=== PATIENT | male | born 1935 | race Caucasian/White ===

== ENCOUNTER 2021-08-06 08:41 | Inpatient (IN) | payer MEDICARE, BC ==
[~2021-08-06] VITALS: Ht 193 cm; Wt 109.8 kg
[2021-08-06 09:03] VITALS: BP 124/58
[2021-08-06] MEDS ORDERED: GLUMETZA500 PO (09:27)
[2021-08-06] MEDS ORDERED: VITAMIN D310 MC1 PO (09:27)
[2021-08-06] MEDS ORDERED: GLUCOSAMINE HC500 M1 PO (09:27)
[2021-08-06] MEDS ORDERED: LEVO-T100 MCG PO (09:28)
[2021-08-06] MEDS ORDERED: ANDROGEL5 GM TOP (09:28)
[2021-08-06] MEDS ORDERED: HYDROCHLOROTHIA25 M1 PO (09:28)
[2021-08-06] MEDS ORDERED: PREDNISOLONE 5 M5 M1 PO (09:28)
[2021-08-06 09:29] LABS: ABSOLUTE LYMPHOCYTES 0.6 thou/uL (0.8-5.3); ABSOLUTE NEUTROPHILS 1.4 thou/uL (1.6-8.1); BASOPHILS 0.7 %; EOSINOPHILS 1.3 %; HEMATOCRIT 39.3 % (42.0-52.0); LYMPHOCYTES 30.3 %; MCH 31.3 pg (26.0-34.0); MCV 94.9 fL (80.0-100.0); MONOCYTES 0.6 %; MPV 9.7 fl. (7.2-11.1); NUCLEATED RBCS 0 /100WBC; PLATELET COUNT* 144 thou/uL (150-400); POLYS 67.1 %; RBC 4.14 mil/uL (4.50-6.00); RDW-CV 16.2 % (10.5-14.5)
[2021-08-06] MEDS ORDERED: ABILIFY 5 MG TAB5 MG PO (09:29)
[2021-08-06] MEDS ORDERED: BROMOCRIPTINE2.5 M2 PO (09:29)
[2021-08-06] MEDS ORDERED: ELIQUIS2.5 MG PO (09:29)
[2021-08-06 09:36] LABS: INFLUENZA A ANTIGEN Negative (Negative); INFLUENZA B ANTIGEN Negative (Negative)
[2021-08-06 10:24] LABS: URINE BILIRUBIN NEGATIVE (Negative); URINE BLOOD 3+ (Negative); URINE CLARITY CLEAR; URINE COLOR YELLOW; URINE GLUCOSE-RANDOM NEGATIVE (Negative); URINE KETONES NEGATIVE (Negative); URINE PROTEIN NEGATIVE (Negative); URINE SPECIFIC GRAVITY 1.025 (1.005-1.030); URINE UROBILINOGEN 0.2 E.U./dl (0.2-1.0)
[2021-08-06 10:25] LABS: URINE LEUKOCYTES-REFLEX 2+ (Negative); URINE NITRITE-REFLEX POSITIVE (Negative)
--- NOTE | 2021-08-06 10:28 | EKG ---
[place] [address] ELECTROCARDIOGRAM REPORT Name: TAMERA MEDINA Room: [facility]#: [id number] Admission: 08/06/21 Attend Phys: Discharge: Date of : [birth year] Date of Service: 08/06/21854 Report #: [id number] THIS REPORT FOR: //name// [facility] ED Test Date: 2021-08-06 Test Time: 08:55:51 Pat Name: TAMERA MEDINA Department: Room: Gender: [employer] L[employer]ter: : 1935 Requested By: Boni Hale Order Number: [id number] MD: Brandt Hull Measurements Intervals [place] Rate: 186 P: [place]: QRS: 59 QRSD: 128 T: 256 QT: 294 QTc: 517 Interpretive Statements atrial fibrillation nonspecific st segment chagnes artifact noted No previous ECG available for comparison Electronically Signed On 08-06-2021 10:28:15 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
[2021-08-06 10:35] LABS: BACTERIA-REFLEX >30 Many /HPF (None Seen)
[2021-08-06 10:36] LABS: CASTS None Seen /LPF (None Seen); CRYSTALS None Seen /LPF (None Seen); SQUAMOUS 0-3 Few /LPF (0-3); URINE RBC >20 Many /HPF (0-2); URINE WBC-REFLEX 6-15 Few /HPF (0-5)
[2021-08-06 10:37] LABS: MUCUS 0-3 Light strn/LPF (None Seen)
[2021-08-06 16:30] VITALS: BP 78/57
[2021-08-06 16:46] LABS: CALCIUM 8.9 mg/dL (8.5-10.1); CREATININE 1.5 mg/dL (0.6-1.3); POTASSIUM 3.4 mmol/L (3.5-5.1)
[2021-08-06 16:53] LABS: ALBUMIN 3.8 g/dL (3.4-5.0); TOTAL BILIRUBIN 1.8 mg/dL (<0.1-1.0); TOTAL PROTEIN 7.3 g/dL (6.4-8.2)
[2021-08-07] VITALS (7 sets, daily range): BP systolic 94–140; BP diastolic 42–78
--- NOTE | 2021-08-07 10:34 | NUR ---
Pt is admitted to the hospital on 08/06/21 with Sepsis/UTI. Pt lives with and daughter in a house with 1 step to enter. reports they have steps in the home to the downstairs. Pt was independent in ADL's and mobility. Pt utilized a CPAP machine through [facility]. No hx of SNF. Pt has a remote hx of HH but was unable to recall the name. Pt is vaccinated. Pt last saw his PCP in May of 2021. Pt fills his prescriptions through [facility]. No discharge needs identified at this time. CM to continue to follow for discharge planning.
[2021-08-07 11:33] LABS: HEMATOCRIT 30.6 % (42.0-52.0); MCH 31.5 pg (26.0-34.0); MCHC 33.6 g/dL (28.0-37.0); MCV 93.7 fL (80.0-100.0); MPV 10.3 fl. (7.2-11.1); NUCLEATED RBCS 0 /100WBC; PLATELET COUNT* 80 thou/uL (150-400); RBC 3.27 mil/uL (4.50-6.00); RDW-CV 16.3 % (10.5-14.5)
[2021-08-07 11:52] LABS: ALBUMIN 2.7 g/dL (3.4-5.0); CALCIUM 7.5 mg/dL (8.5-10.1); CREATININE 1.7 mg/dL (0.6-1.3); MAGNESIUM 1.3 mg/dL (1.8-2.4); POTASSIUM 3.9 mmol/L (3.5-5.1); TOTAL BILIRUBIN 1.5 mg/dL (<0.1-1.0); TOTAL PROTEIN 5.7 g/dL (6.4-8.2)
[2021-08-07 11:58] LABS: HEMOGLOBIN 10.3 gm/dL (14.0-18.0); WBC 13.6 thou/uL (4.0-11.0)
[2021-08-07 13:57] LABS: ABSOLUTE MONOCYTES 0.5 thou/uL (0.0-1.2); ABSOLUTE NEUTROPHILS 12.1 thou/uL (1.6-8.1)
[2021-08-07 14:00] LABS: HYPOCHROMASIA Occasional; PLATELET ESTIMATE DECREASED
[2021-08-07] MEDS ORDERED: TOPROL XL25 MG PO (14:22)
[2021-08-07] MEDS ORDERED: LIPITOR40 MG PO (14:24)
[2021-08-07] MEDS ORDERED: COZAAR 25 MG TA25 M1 PO (14:27)
[2021-08-07] MEDS ORDERED: HYDROCHLOROTHIA25 M1 PO (14:28)
[2021-08-07] MEDS ORDERED: GLUCOSAMINE &1 EACH PO (14:30)
[2021-08-07] MEDS ORDERED: VITAMIN D325 MC5 PO (14:31)
[2021-08-08 02:49] VITALS: BP 105/56
[2021-08-08 05:57] VITALS: BP 141/77
[2021-08-08 09:00] VITALS: BP 147/82
[2021-08-08 11:28] VITALS: BP 117/73
[2021-08-08] MEDS ORDERED: VITAMIN C1000 MG PO (13:19)
[2021-08-08] MEDS ORDERED: VITAMIN D325 MC2 PO (13:19)
[2021-08-08] MEDS ORDERED: CEFDINIR300 MG PO (13:19)
[2021-08-08] MEDS ORDERED: METOPROLOL TART25 MG PO (13:19)
[2021-08-08 14:21] LABS: ABSOLUTE LYMPHOCYTES 0.5 thou/uL (0.8-5.3); ABSOLUTE MONOCYTES 0.4 thou/uL (0.0-1.2); ABSOLUTE NEUTROPHILS 10.8 thou/uL (1.6-8.1); BASOPHILS 0.1 %; EOSINOPHILS 0.1 %; HEMATOCRIT 30.9 % (42.0-52.0); HEMOGLOBIN 10.3 gm/dL (14.0-18.0); LYMPHOCYTES 4.1 %; MCH 31.4 pg (26.0-34.0); MCHC 33.4 g/dL (28.0-37.0); MCV 94.1 fL (80.0-100.0); MONOCYTES 3.1 %; MPV 10.2 fl. (7.2-11.1); NUCLEATED RBCS 0 /100WBC; PLATELET COUNT* 81 thou/uL (150-400); POLYS 92.6 %; RBC 3.29 mil/uL (4.50-6.00); RDW-CV 15.8 % (10.5-14.5); WBC 11.6 thou/uL (4.0-11.0)
[2021-08-08 14:25] LABS: CALCIUM 7.7 mg/dL (8.5-10.1); CREATININE 1.4 mg/dL (0.6-1.3); MAGNESIUM 1.7 mg/dL (1.8-2.4); POTASSIUM 3.7 mmol/L (3.5-5.1)
[2021-08-08 14:40] VITALS: BP 117/73
== END 2021-08-08 15:56 | disposition home health service (06) | DRG 871 ==
LOC: M.ERS 08:41 → M.TBA-ER 12:09 → M.2W 08-07 11:36
PROVIDERS: Family Medicine; Internal Medicine; ADMIT Internal Medicine; ATTEND Internal Medicine
PROC: 02HV33Z Insertion of Infusion Device into Superior Vena Cava, Percutaneous Approach (ICD-10-PCS; principal; 2021-08-06)
DX: A41.9 Sepsis, unspecified organism (principal); R65.21 Severe sepsis with septic shock; N17.0 Acute kidney failure with tubular necrosis; N30.00 Acute cystitis without hematuria; B96.1 Klebsiella pneumoniae [K. pneumoniae] as the cause of diseases classified elsewhere; E03.9 Hypothyroidism, unspecified; E11.9 Type 2 diabetes mellitus without complications; I10 Essential (primary) hypertension; I73.9 Peripheral vascular disease, unspecified; Z20.822 Contact with and (suspected) exposure to COVID-19